=== PATIENT | male | born 1940 | race Caucasian/White ===

== ENCOUNTER → 2016-04-06 | Outpatient (CLI) | payer MEDICARE, OTHER | LOC: OD 14:35 | PROVIDERS: ATTEND Internal Medicine | DX: M54.14 Radiculopathy, thoracic region (principal) | CPT/HCPCS: 72070 ==

== ENCOUNTER → 2016-04-17 | Outpatient (CLI) | payer MEDICARE, OTHER | LOC: RAD 12:23 | PROVIDERS: ATTEND Internal Medicine | DX: M48.54XA Collapsed vertebra, not elsewhere classified, thoracic region, initial encounter for fracture (principal); M54.14 Radiculopathy, thoracic region; M40.294 Other kyphosis, thoracic region | CPT/HCPCS: 72146 ==

== ENCOUNTER 2016-06-20 13:13 | Emergency (ER) | payer MEDICARE, OTHER ==
--- NOTE | 2016-06-20 13:52 | ER Document Report ---
ED Medical Screen (RME) - General Mode of Arrival: Ambulatory Information source: Patient TRAVEL OUTSIDE OF THE [place] IN LAST 30 DAYS: No - HPI Patient complains to provider of: Right Groin Pain Onset: Other - 3 days ago Associated Symptoms: Other - see notes above <REMEDIOS OLIVIER - Last Filed: 06/20/16 14:40> <ARMANDORAMON ANN - Last Filed: 06/20/16 14:56> - General Chief Complaint: Groin Pain Stated Complaint: GROIN PAIN Notes: 75 year old male with history of diabetes, hypertension, hyperlipidemia, and CAD presents to the ED complaining of right side groin pain that started 3 days ago. Patient explains that 3 days ago, he went to use the restroom and collapsed on his knees when trying to get up secondary to the pain. Patient states that his right groin is swollen and feels like there is a "ball" there. Patient denies testicular pain or dysuria. (REMEDIOS OLIVIER) - Related Data Allergies/Adverse Reactions: Penicillins Allergy (Severe, Verified 06/20/16 13:16) rash and hospitalization for 3 days Past Medical History - General Information source: Patient - Past Medical History Cardiac Medical History: Reports: Hx Coronary Artery Disease, Hx Heart Attack, Hx Hypercholesterolemia, Hx Hypertension Pulmonary Medical History: Reports: Hx Asthma, Hx COPD Denies: Hx Bronchitis, Hx Pneumonia Neurological Medical History: Reports: Hx Seizures - suspect few years ago on meds. Denies: Hx Cerebrovascular Accident Endocrine Medical History: Reports: Hx Diabetes Mellitus Type 2, Hx Hypothyroidism Renal/ Medical History: Denies: Hx Peritoneal Dialysis GI Medical History: Denies: Hx Hepatitis, Hx Hiatal Hernia, Hx Ulcer Musculoskeltal Medical History: Denies Hx Arthritis Psychiatric Medical History: Denies: Hx Depression Infectious Medical History: Denies: Hx Hepatitis Past Surgical History: Reports: Hx Cholecystectomy, Hx Orthopedic Surgery - Right Knee arthroscopy, Hx Thyroid Surgery - Thyroidectomy. Denies: Hx Open Heart Surgery, Hx Pacemaker - Immunizations Hx Diphtheria, Pertussis, Tetanus Vaccination: Yes <REMEDIOS OLIVIER - Last Filed: 06/20/16 14:40> Review of Systems - Review of Systems Constitutional: No symptoms reported EENT: No symptoms reported Cardiovascular: No symptoms reported Respiratory: No symptoms reported Gastrointestinal: No symptoms reported Genitourinary: No symptoms reported. denies: Dysuria Male Genitourinary: See HPI, Other - Right sided groin pain and swelling. denies: Testicular pain Musculoskeletal: No symptoms reported Skin: No symptoms reported Hematologic/Lymphatic: No symptoms reported Neurological/Psychological: No symptoms reported <REMEDIOS OLIVIER - Last Filed: 06/20/16 14:40> Physical Exam - General General appearance: Alert In distress: None - Respiratory Respiratory status: No respiratory distress <REMEDIOS OLIVIER - Last Filed: 06/20/16 14:40> <RAMON ROBERTS - Last Filed: 06/20/16 14:56> - Vital signs Vitals: Temp Pulse Resp BP Pulse Ox 98.4 F 71 18 144/74 H 93 06/20/16 13:17 06/20/16 13:17 06/20/16 13:17 06/20/16 13:17 06/20/16 13:17 - Genitourinary Notes: Yeast infection present to the bilateral medial thighs that do not look cellulitic. Bilateral inguinal hernia are present. Right groin is tender to palpate. (REMEDIOS OLIVIER) Course - Laboratory Result Diagrams: 06/20/16 13:48 06/20/16 13:48 - Consults Dr. Quintero Time consulted: 13:32 <REMEDIOS OLIVIER - Last Filed: 06/20/16 14:40> - Laboratory Result Diagrams: 06/20/16 13:48 06/20/16 13:48 <RAMON ROBERTS - Last Filed: 06/20/16 14:56> - Re-evaluation Re-evalutation: 06/20/16 14:56 I personally performed the services described in the documentation, reviewed and edited the documentation which was dictated to the scribe in my presence, and it accurately records my words and actions. (RAMON ROBERTS) - Vital Signs Vital signs: Temp Pulse Resp BP Pulse Ox 98.4 F 71 18 144/74 H 93 06/20/16 13:17 06/20/16 13:17 06/20/16 13:17 06/20/16 13:17 06/20/16 13:17 - Laboratory Laboratory results interpreted by me: 06/20/16 06/20/16 13:48 13:48 WBC 14.9 H RBC 3.92 L Hgb 12.6 L Hct 37.5 L RDW 16.7 H Plt Count 122 L Absolute Neutrophils 11.1 H Absolute Monocytes 1.6 H Potassium 3.5 L Total Protein 6.1 L Albumin 2.6 L - Consults Dr. Quintero Reason for consultation: 06/20/16 13:32 Patient was discussed with Dr. Quintero and he states to CT the patient with po contrast. (REMEDIOS OLIVIER) Scribe Documentation - Scribe Written by Scribe:: Larry Nicole, 06/20/2016 1404 acting as scribe for :: Armando <REMEDIOS OLIVIER - Last Filed: 06/20/16 14:40>
[2016-06-20 14:15] LABS: PROTHROMBIN TIME 14.8 SEC (11.4-15.4)
[2016-06-20 14:16] LABS: ABSOLUTE BASOPHILS # (AUTO) 0.1 10^3/uL (0.0-0.2); ABSOLUTE EOSINOPHILS # (AUTO) 0.2 10^3/uL (0.0-0.6); ABSOLUTE LYMPHOCYTES (AUTO) 1.9 10^3/uL (0.5-4.7); ABSOLUTE MONOCYTES (AUTO) 1.6 10^3/uL (0.1-1.4); ABSOLUTE NEUT (AUTO) 11.1 10^3/uL (1.7-8.2); BASOPHILS % (AUTO) 0.5 % (0-2); EOSINOPHILS % (AUTO) 1.3 % (0-6); HEMATOCRIT 37.5 % (37.9-51.0); HEMOGLOBIN 12.6 g/dL (13.5-17.0); HGB HCT DIFFERENCE 0.3; MEAN CORPUSCULAR HEMOGLOBIN 32.1 pg (27.0-33.4); MEAN CORPUSCULAR HGB CONC 33.5 g/dL (32.0-36.0); MEAN CORPUSCULAR VOLUME 96 fl (80-97); MONOCYTES % (AUTO) 10.6 % (3-13); PARTIAL THROMBOPLASTIN TIME 26.7 SEC (23.5-35.8); RED BLOOD COUNT 3.92 10^6/uL (4.35-5.55); RED CELL DISTRIBUTION WIDTH 16.7 % (11.5-14.0); SEGMENTED NEUTROPHILS % (AUTO) 74.6 % (42-78); WHITE BLOOD COUNT 14.9 10^3/uL (4.0-10.5)
[2016-06-20 14:34] LABS: ALANINE AMINOTRANSFERASE 41 U/L (21-72); ALBUMIN 2.6 g/dL (3.5-5.0); ALKALINE PHOSPHATASE 114 U/L (38-126); ANION GAP 7 (5-19); ASPARTATE AMINO TRANSFERASE 31 U/L (17-59); BILIRUBIN,DIRECT 0.2 mg/dL (0.0-0.4); BILIRUBIN,TOTAL 1.1 mg/dL (0.2-1.3); BLOOD UREA NITROGEN 11 mg/dL (7-20); CALCIUM 8.4 mg/dL (8.4-10.2); CARBON DIOXIDE 26 mmol/L (22-30); CHLORIDE 105 mmol/L (98-107); CREATININE RESULT 0.74 mg/dL (0.52-1.25); GLUCOSE 105 mg/dL (75-110); SODIUM 137.9 mmol/L (137-145); TOTAL PROTEIN 6.1 g/dL (6.3-8.2)
[2016-06-20 14:36] LABS: POTASSIUM 3.5 mmol/L (3.6-5.0)
[2016-06-20 15:00] LABS: APPEARANCE,URINE SLIGHTLY-CLOUDY; BILIRUBIN,URINE NEGATIVE (NEGATIVE); GLUCOSE, URINE NEGATIVE (NEGATIVE); KETONES,URINE NEGATIVE (NEGATIVE); LEUKOCYTE ESTERASE,URINE NEGATIVE (NEGATIVE); NITRITE,URINE NEGATIVE (NEGATIVE); PROTEIN,URINE 30 mg/dL (NEGATIVE); UROBILINOGEN,URINE NEGATIVE mg/dL (<2.0)
--- NOTE | 2016-06-20 17:37 | ER Document Report ---
ED General - General Chief Complaint: Groin Pain Stated Complaint: GROIN PAIN Mode of Arrival: Ambulatory Information source: Patient Notes: 75-year-old male presents with complaints of bilateral groin swelling over the past week. Patient denies any fevers or chills. Last bowel movement 30 minutes ago, patient denies any abdominal pain otherwise Patient does note rash in his groin which has been ongoing now for weeks TRAVEL OUTSIDE OF THE [place] IN LAST 30 DAYS: No - HPI Onset: Other Onset/Duration: Persistent Quality of pain: No pain Severity: Mild Pain Level: Denies Associated symptoms: Other Exacerbated by: Denies Relieved by: Denies Similar symptoms previously: No Recently seen / treated by doctor: No - Related Data Allergies/Adverse Reactions: Penicillins Allergy (Severe, Verified 06/20/16 13:16) rash and hospitalization for 3 days Past Medical History - General Information source: Patient - Social History Smoking Status: Never Smoker Cigarette use (# per day): No Chew tobacco use (# tins/day): No Smoking Education Provided: No Family History: Reviewed & Not Pertinent Patient has suicidal ideation: No Patient has homicidal ideation: No - Past Medical History Cardiac Medical History: Reports: Hx Coronary Artery Disease, Hx Heart Attack, Hx Hypercholesterolemia, Hx Hypertension Pulmonary Medical History: Reports: Hx Asthma, Hx COPD Denies: Hx Bronchitis, Hx Pneumonia Neurological Medical History: Reports: Hx Seizures - suspect few years ago on meds. Denies: Hx Cerebrovascular Accident Endocrine Medical History: Reports: Hx Diabetes Mellitus Type 2, Hx Hypothyroidism Renal/ Medical History: Denies: Hx Peritoneal Dialysis GI Medical History: Denies: Hx Hepatitis, Hx Hiatal Hernia, Hx Ulcer Musculoskeltal Medical History: Denies Hx Arthritis Psychiatric Medical History: Denies: Hx Depression Infectious Medical History: Denies: Hx Hepatitis Past Surgical History: Reports: Hx Cholecystectomy, Hx Orthopedic Surgery - Right Knee arthroscopy, Hx Thyroid Surgery - Thyroidectomy. Denies: Hx Open Heart Surgery, Hx Pacemaker - Immunizations Hx Diphtheria, Pertussis, Tetanus Vaccination: Yes Hx Pneumococcal Vaccination: 12/17/09 Review of Systems - Review of Systems Notes: REVIEW OF SYSTEMS: CONSTITUTIONAL : Denies fever, chills, or sweats. Denies recent illness. EENT: Denies eye, ear, throat, or mouth pain or symptoms. Denies nasal or sinus congestion or discharge. Denies throat, tongue, or mouth swelling or difficulty swallowing. CARDIOVASCULAR: Denies chest pain. Denies palpitations or racing or irregular heart beat. Denies ankle edema. RESPIRATORY: Denies cough, cold, or chest congestion. Denies shortness of breath, difficulty breathing, or wheezing. GASTROINTESTINAL: Admits to bilateral serous swelling GENITOURINARY: Denies difficulty urinating, painful urination, burning, frequency, blood in urine, or discharge. MUSCULOSKELETAL: Denies back or neck pain or stiffness. Denies joint pain or swelling. SKIN: Admits to rash HEMATOLOGIC : Denies easy bruising or bleeding. LYMPHATIC: Denies swollen, enlarged glands. NEUROLOGICAL: Denies confusion or altered mental status. Denies passing out or loss of consciousness. Denies dizziness or lightheadedness. Denies headache. Denies weakness or paralysis or loss of use of either side. Denies problems with gait or speech. Denies sensory loss, numbness, or tingling. Denies seizures. PSYCHIATRIC: Denies anxiety or stress. Denies depression, suicidal ideation, or homicidal ideation. ALL OTHER SYSTEMS REVIEWED AND NEGATIVE. Dictation was performed using [employer] voice recognition software PHYSICAL EXAMINATION: GENERAL: Well-appearing, well-nourished and in no acute distress. HEAD: Atraumatic, normocephalic. EYES: Pupils equal round and reactive to light, extraocular movements intact, sclera anicteric, conjunctiva are normal. ENT: Nares patent, oropharynx clear without exudates. Moist mucous membranes. NECK: Normal range of motion, supple without lymphadenopathy LUNGS: Breath sounds clear to auscultation bilaterally and equal. No wheezes rales or rhonchi. HEART: Regular rate and rhythm without murmurs ABDOMEN: Soft, nontender, nondistended abdomen. No guarding, no rebound. No masses appreciated. Bilateral testicular swelling reducible inguinal hernias midline incision noted Musculoskeletal: Normal range of motion, no pitting or edema. No cyanosis. NEUROLOGICAL: Cranial nerves grossly intact. Normal speech, normal gait. Normal sensory, motor exams PSYCH: Normal mood, normal affect. SKIN: Used infection in the inguinal regions bilaterally and her thighs Physical Exam - Vital signs Vitals: Temp Pulse Resp BP Pulse Ox 98.4 F 71 18 144/74 H 93 06/20/16 13:17 06/20/16 13:17 06/20/16 13:17 06/20/16 13:17 06/20/16 13:17 Course - Re-evaluation Re-evalutation: 06/20/16 19:13 Patient was immediately evaluated by surgical rest, initially a CT had been ordered patient notes he is reproducible inguinal hernias, given that patient abdomen soft nontender nondistended he believes follow-up with clinic is appropriate. Family member agrees with this plan After performing a Medical Screening Examination, I estimate there is LOW risk for ACUTE APPENDICITIS, BOWEL OBSTRUCTION, ACUTE CHOLECYSTITIS, PERFORATED DIVERTICULITIS, INCARCERATED HERNIA, PANCREATITIS, or PERFORATED ULCER, thus I consider the discharge disposition reasonable. Also, there is no evidence or peritonitis, sepsis, or toxicity. The patient and I have discussed the diagnosis and risks, and we agree with discharging home with close follow-up with the understanding that symptoms and presentations can change. We also discussed returning to the Emergency Department immediately if new or worsening symptoms occur. We have discussed the symptoms which are most concerning (e.g., bloody stool, fever, changing or worsening pain, intractable vomiting - standard verbal up date) that necessitate immediate return. - Vital Signs Vital signs: Temp Pulse Resp BP Pulse Ox 98.4 F 79 18 132/69 H 99 06/20/16 18:10 06/20/16 18:10 06/20/16 18:10 06/20/16 18:10 06/20/16 18:10 - Laboratory Result Diagrams: 06/20/16 13:48 06/20/16 13:48 Laboratory results interpreted by me: 06/20/16 06/20/16 06/20/16 13:48 13:48 14:34 WBC 14.9 H RBC 3.92 L Hgb 12.6 L Hct 37.5 L RDW 16.7 H Plt Count 122 L Absolute Neutrophils 11.1 H Absolute Monocytes 1.6 H Potassium 3.5 L Total Protein 6.1 L Albumin 2.6 L Urine Protein 30 H Discharge - Discharge Clinical Impression: inguinal yeast infection Inguinal hernia Qualifiers: Obstruction and gangrene presence: without obstruction or gangrene Laterality: bilateral Recurrence: non-recurrent Qualified Code(s): K40.20 - Bilateral inguinal hernia, without obstruction or gangrene, not specified as recurrent Condition: Stable Disposition: HOME, SELF-CARE Instructions: Umbilical Hernia ([facility]) Additional Instructions: You have been given follow-up with surgery clinic, please see them regarding your hernia. Return immediately if you are unable to have bowel movements or vomiting stool Prescriptions: Nystatin 30 gm TP BID #14 cream..g.
--- NOTE | 2016-06-20 18:13 | CONSULTATION REPORT E ---
Consultation Report NAME: ATTIANA DAVID : 1940 AGE: 75Y DATE: 06/20/2016 TO: GREG MARTÍNEZ M.D. FROM: Doroteo GUERRA, Requesting Physician REASON FOR CONSULTATION: Patient with pains in the right thigh with enlarging right inguinal hernia. SUMMARY: This is a 75-year-old male who noted pains along the right upper inner thigh this morning and noted a larger right inguinal hernia. He denies any pains along the hernia sites. No diarrhea or constipation. No nausea or vomiting. No abdominal pains. His white count is elevated to 14.9. PAST HISTORY: History of laparoscopic cholecystectomy. He has some vertebral cervical pains attributed to arthritis. He also has a history of diabetes and complaining of pain along the left foot. REVIEW OF SYSTEMS: As in HPI. Denies any balance problems nor headaches nor fever. Complaining of pains along the right upper inner thigh with no bulging at the site. PHYSICAL EXAMINATION: GENERAL: Well-developed, well-nourished 75-year-old male, alert and oriented, in no apparent acute distress. HEENT: Neck is supple. No thyromegaly. LUNGS: Clear. HEART: Regular sinus rhythm. ABDOMEN: Soft and nontender. He has bilateral inguinal hernias that are reducible. EXTREMITIES: He has skin erythematous areas along both groins. There is no bulging along the right thigh. Mild tenderness. Both legs are not swollen or edematous. IMPRESSION: 1. Skin groin infection, possible fungal. 2. Incidental finding of bilateral inguinal hernias that are reducible. RECOMMENDATIONS: 1. ER doctor to prescribe skin infection medication. 2. Patient to be followed up in the surgical clinic as needed. DICTATING PHYSICIAN: GREG MARTÍNEZ M.D. [id number] PHY#: [id number] ID: [id number] JOB#: [id number] ACCT: [id number] cc:GREG MARTÍNEZ M.D. >
[2016-06-20 18:17] VITALS: BP 132/69
== END 2016-06-20 18:10 | disposition home or self-care (01) ==
LOC: ER 13:13
DX: K40.20 Bilateral inguinal hernia, without obstruction or gangrene, not specified as recurrent (principal); B37.89 Other sites of candidiasis; R10.30 Lower abdominal pain, unspecified
CPT/HCPCS: 36415; 80053; 81001; 82272; 85025; 85610; 85730; 87086; 99283

== ENCOUNTER → 2016-06-22 | Outpatient (CLI) | payer MEDICARE, OTHER ==
[2016-06-22 17:01] LABS: ABSOLUTE BASOPHILS # (AUTO) 0.1 10^3/uL (0.0-0.2); ABSOLUTE EOSINOPHILS # (AUTO) 0.3 10^3/uL (0.0-0.6); ABSOLUTE LYMPHOCYTES (AUTO) 1.7 10^3/uL (0.5-4.7); ABSOLUTE MONOCYTES (AUTO) 1.3 10^3/uL (0.1-1.4); ABSOLUTE NEUT (AUTO) 9.3 10^3/uL (1.7-8.2); BASOPHILS % (AUTO) 0.8 % (0-2); HEMATOCRIT 37.9 % (37.9-51.0); HEMOGLOBIN 12.8 g/dL (13.5-17.0); HGB HCT DIFFERENCE 0.5; LYMPHOCYTES % (AUTO) 13.3 % (13-45); MEAN CORPUSCULAR HEMOGLOBIN 32.4 pg (27.0-33.4); MEAN CORPUSCULAR HGB CONC 33.8 g/dL (32.0-36.0); MEAN CORPUSCULAR VOLUME 96 fl (80-97); MONOCYTES % (AUTO) 10.3 % (3-13); RED BLOOD COUNT 3.95 10^6/uL (4.35-5.55); RED CELL DISTRIBUTION WIDTH 16.4 % (11.5-14.0); SEGMENTED NEUTROPHILS % (AUTO) 73.6 % (42-78); WHITE BLOOD COUNT 12.6 10^3/uL (4.0-10.5)
[2016-06-22 17:28] LABS: ALANINE AMINOTRANSFERASE 40 U/L (21-72); ALBUMIN 2.7 g/dL (3.5-5.0); ALKALINE PHOSPHATASE 111 U/L (38-126); ANION GAP 11 (5-19); ASPARTATE AMINO TRANSFERASE 33 U/L (17-59); BILIRUBIN,DIRECT 0.4 mg/dL (0.0-0.4); BILIRUBIN,TOTAL 1.1 mg/dL (0.2-1.3); BLOOD UREA NITROGEN 10 mg/dL (7-20); CALCIUM 8.5 mg/dL (8.4-10.2); CARBON DIOXIDE 24 mmol/L (22-30); CHLORIDE 104 mmol/L (98-107); CREATININE RESULT 0.66 mg/dL (0.52-1.25); GLUCOSE 90 mg/dL (75-110); MAGNESIUM 1.7 mg/dL (1.6-2.3); POTASSIUM 3.1 mmol/L (3.6-5.0); SODIUM 138.5 mmol/L (137-145); TOTAL PROTEIN 6.5 g/dL (6.3-8.2)
== END ==
LOC: OD 15:42
PROVIDERS: ATTEND Internal Medicine
DX: E87.0 Hyperosmolality and hypernatremia (principal); E03.9 Hypothyroidism, unspecified; E11.9 Type 2 diabetes mellitus without complications
CPT/HCPCS: 36415; 80053; 83735; 84443; 85025

== ENCOUNTER 2016-07-12 05:15 | Day surgery (SDC) | payer MEDICARE, OTHER ==
[2016-07-05 11:54] LABS: ABSOLUTE BASOPHILS # (AUTO) 0.1 10^3/uL (0.0-0.2); ABSOLUTE EOSINOPHILS # (AUTO) 0.8 10^3/uL (0.0-0.6); ABSOLUTE LYMPHOCYTES (AUTO) 1.9 10^3/uL (0.5-4.7); ABSOLUTE MONOCYTES (AUTO) 0.9 10^3/uL (0.1-1.4); EOSINOPHILS % (AUTO) 9.1 % (0-6); HEMATOCRIT 38.1 % (37.9-51.0); HEMOGLOBIN 13.1 g/dL (13.5-17.0); HGB HCT DIFFERENCE 1.2; LYMPHOCYTES % (AUTO) 21.6 % (13-45); MEAN CORPUSCULAR HGB CONC 34.4 g/dL (32.0-36.0); MEAN CORPUSCULAR VOLUME 96 fl (80-97); MONOCYTES % (AUTO) 10.5 % (3-13); RED BLOOD COUNT 3.97 10^6/uL (4.35-5.55); RED CELL DISTRIBUTION WIDTH 15.5 % (11.5-14.0); SEGMENTED NEUTROPHILS % (AUTO) 57.8 % (42-78); WHITE BLOOD COUNT 8.6 10^3/uL (4.0-10.5)
[2016-07-05 12:05] LABS: APPEARANCE,URINE CLEAR; BILIRUBIN,URINE NEGATIVE (NEGATIVE); GLUCOSE, URINE NEGATIVE (NEGATIVE); KETONES,URINE NEGATIVE (NEGATIVE); LEUKOCYTE ESTERASE,URINE NEGATIVE (NEGATIVE); NITRITE,URINE NEGATIVE (NEGATIVE); PROTEIN,URINE NEGATIVE (NEGATIVE); URINE SPECIFIC GRAVITY 1.013
[2016-07-05 12:19] LABS: ANION GAP 9 (5-19); BLOOD UREA NITROGEN 7 mg/dL (7-20); CALCIUM 8.4 mg/dL (8.4-10.2); CARBON DIOXIDE 27 mmol/L (22-30); CHLORIDE 106 mmol/L (98-107); CREATININE RESULT 0.57 mg/dL (0.52-1.25); GLUCOSE 104 mg/dL (75-110); POTASSIUM 3.1 mmol/L (3.6-5.0); SODIUM 141.5 mmol/L (137-145)
--- NOTE | 2016-07-05 20:04 | EKG REPORT ---
SEVERITY:- NORMAL ECG - SINUS RHYTHM : Confirmed by: Lorene Chong MD 05-Jul-2016 20:03:27
[~2016-07-12 05:15] MED LIST: CLINDAMYCIN 600 MG/D5W RTU 600 MG/50 ML RTUPB IV PRN; LACTATED RINGERS 1000 ML IV PRN; LIDOCAINE 0.5% INJ-PF (5 MG/ML) 50 ML SDV SUBCUT PRN
[2016-07-12] MEDS ORDERED: MIDAZOLAM 2 MG/2 ML INJ ONE (06:55)
[2016-07-12] MEDS ORDERED: PROPOFOL INJ 200 MG/20 ML VIAL IV ONE (06:55)
[2016-07-12] MEDS ORDERED: FENTANYL CITRATE INJ/PF 100 MCG/2 ML AMPUL ONE (06:55)
[2016-07-12] MEDS ORDERED: BUPIVACAINE HCL 0.25 % INJ/PF (2.5 MG/1 ML) 30 ML VIAL ONE (07:24)
[2016-07-12] MEDS ORDERED: FENTANYL CITRATE INJ/PF 100 MCG/2 ML AMPUL IV PRN ×3 (07:33)
[2016-07-12] MEDS ORDERED: DIPHENHYDRAMINE HCL 50 MG/ML VIAL IV PRN (07:33)
[2016-07-12] MEDS ORDERED: ONDANSETRON HCL INJ/PF 4 MG/2 ML SDV IV PRN ×2 (07:33→08:37)
[2016-07-12] MEDS ORDERED: MEPERIDINE HCL/PF INJ 25 MG/1 ML DISP.SYRIN IV PRN (07:33)
[2016-07-12] MEDS ORDERED: PROMETHAZINE HCL INJ 25 MG/1 ML VIAL IV PRN ×2 (07:33)
[2016-07-12] MEDS ORDERED: MORPHINE SULFATE 10 MG/ML INJ IV PRN (07:33)
--- NOTE | 2016-07-12 07:45 | Operative Report ---
Operative Report DATE OF SURGERY: 07/12/16 PREOPERATIVE DIAGNOSIS: Left fourth toe deformity OPERATION: Left fourth toe MTP disarticulation SURGEON: ISABELLA ONTIVEROS ANESTHESIA: LMAC TISSUE REMOVED OR ALTERED: Toe to pathology ESTIMATED BLOOD LOSS: minimal PROCEDURE: With the patient supine operative table left lower extremity is prepped and draped in sterile fashion. The skin and soft tissue about the base of the left fourth toe is insufflated with an quarter percent Marcaine. Subsequently a tennis racquet type incision is made about the base of the toe and extending proximally along the metatarsal dorsally. Sharp dissection is carried incision down to the MTP capsule. This was dissected circumferentially delivering the toe from the field. The wound is irrigated. Hemostasis obtained with electrocautery. The wound is then reapproximated using interrupted 2-0 nylon. A sterile compressive dressing was applied and the patient's returned to the PACU in satisfactory condition.
[2016-07-12] MEDS ORDERED: OXYCODONE HCL IR 5 MG TABLET PO PRN (08:37)
[2016-07-12 10:12] VITALS: BP 126/75
== END 2016-07-12 10:25 | disposition home or self-care (01) ==
LOC: OROUT 05:15
PROVIDERS: ATTEND Orthopaedic Surgery
PROC: 0Y6W0Z0 Detachment at Left 4th Toe, Complete, Open Approach (ICD-10-PCS; principal; 2016-07-12 07:30)
DX: M20.42 Other hammer toe(s) (acquired), left foot (principal); M19.90 Unspecified osteoarthritis, unspecified site; E11.9 Type 2 diabetes mellitus without complications; E78.00 Pure hypercholesterolemia, unspecified; I10 Essential (primary) hypertension; E03.9 Hypothyroidism, unspecified; J44.9 Chronic obstructive pulmonary disease, unspecified; Z79.899 Other long term (current) drug therapy; Z88.0 Allergy status to penicillin; Z79.51 Long term (current) use of inhaled steroids; Z87.891 Personal history of nicotine dependence
CPT/HCPCS: 93005; 36415 ×2; 82962; 84132; 85025; 80048; 81001; 83036; 88304 ×2; 71020; 93010; 28820; J2250; J3010; J2704; 1470

== ENCOUNTER → 2016-09-20 | Outpatient (CLI) | payer MEDICARE, OTHER ==
[2016-09-21 09:07] LABS: IMMUNOGLOBULIN E 912 IU/mL (0-100)
[2016-09-22 14:40] LABS: FOL RBC HEMATOCRIT 36.8 % (37.5-51.0); FOLATE HEMOLYSATE 405.4 ng/mL (Not Estab.); FOLATE RBC 3 1102 ng/mL (>498)
[2016-09-22 15:11] LABS: FOLATE SERUM 10.4 ng/mL (>3.0)
[2016-09-23 06:39] LABS: M001-IGE PENICILLIUM CHRYSOGEN 0.27 kU/L (Class 0/I); M002-IGE CLADOSPORIUM HERBARUM 0.23 kU/L (Class 0/I); M003-IGE ASPERGILLUS FUMIGATUS 0.49 kU/L (Class I); M004-IGE MUCOR RACEMOSUS 0.55 kU/L (Class I); M005-IGE CANDIDA ALBICANS <0.10 kU/L (Class 0); M008-IGE SETOMELANOMMA ROSTRAT 0.18 kU/L (Class 0/I); M009-IGE FUSARIUM PROLIFERATUM 0.15 kU/L (Class 0/I); M012-IGE AUREOBASIDI PULLULANS 0.23 kU/L (Class 0/I); M014-IGE EPICOCCUM PURPURASCEN <0.10 kU/L (Class 0)
[2016-09-23 11:35] LABS: M010-IGE STEMPHYLIUM HERBARUM <0.10 kU/L (Class 0)
== END ==
LOC: OD 11:39
PROVIDERS: ATTEND Internal Medicine Pulmonary Disease
DX: G47.61 Periodic limb movement disorder (principal); J45.909 Unspecified asthma, uncomplicated; Z86.2 Personal history of diseases of the blood and blood-forming organs and certain disorders involving the immune mechanism
CPT/HCPCS: 36415; 82306; 82607; 82728; 82746; 82747; 82785; 84132; 85014; 86003

== ENCOUNTER 2016-11-24 14:46 | Observation (INO) | payer MEDICARE, OTHER ==
--- NOTE | 2016-11-24 15:34 | ER Document Report ---
ED Medical Screen (RME) - General Chief Complaint: Chest Pain > 30 Stated Complaint: CHEST PAIN Time Seen by Provider: 11/24/16 15:31 Mode of Arrival: Wheelchair Information source: Patient TRAVEL OUTSIDE OF THE [place] IN LAST 30 DAYS: No - HPI Patient complains to provider of: CP Onset: Other - Pt. with c/o SSCP for the past 3 days -- has h/o DM and HTN -- took his ASA already this am - Related Data Allergies/Adverse Reactions: Penicillins Allergy (Severe, Verified 11/24/16 14:54) rash and hospitalization for 3 days Past Medical History - Past Medical History Cardiac Medical History: Reports: Hx Coronary Artery Disease, Hx Heart Attack, Hx Hypercholesterolemia, Hx Hypertension Pulmonary Medical History: Reports: Hx Asthma, Hx COPD Denies: Hx Bronchitis, Hx Pneumonia Neurological Medical History: Reports: Hx Seizures - suspect few years ago on meds. Denies: Hx Cerebrovascular Accident Endocrine Medical History: Reports: Hx Diabetes Mellitus Type 2, Hx Hypothyroidism Renal/ Medical History: Denies: Hx Peritoneal Dialysis GI Medical History: Denies: Hx Hepatitis, Hx Hiatal Hernia, Hx Ulcer Musculoskeltal Medical History: Denies Hx Arthritis Psychiatric Medical History: Denies: Hx Depression Infectious Medical History: Denies: Hx Hepatitis Past Surgical History: Reports: Hx Cholecystectomy, Hx Orthopedic Surgery - Right Knee arthroscopy, Hx Thyroid Surgery - Thyroidectomy. Denies: Hx Open Heart Surgery, Hx Pacemaker - Immunizations Hx Diphtheria, Pertussis, Tetanus Vaccination: Yes Physical Exam - Vital signs Vitals: Temp Pulse Resp BP Pulse Ox 97.9 F 73 24 H 175/85 H 94 11/24/16 14:54 11/24/16 14:54 11/24/16 14:54 11/24/16 14:54 11/24/16 14:54 Course - Vital Signs Vital signs: Temp Pulse Resp BP Pulse Ox 97.9 F 73 24 H 175/85 H 94 11/24/16 14:54 11/24/16 14:54 11/24/16 14:54 11/24/16 14:54 11/24/16 14:54
--- NOTE | 2016-11-24 16:26 | RADIOLOGY REPORT (SQ) ---
EXAM DESCRIPTION: CHEST PA/LAT COMPLETED DATE/TIME: 11/24/2016 4:06 pm REASON FOR STUDY: CP COMPARISON: 07/05/2016. EXAM PARAMETERS: NUMBER OF VIEWS: two views TECHNIQUE: Digital Frontal and Lateral radiographic views of the chest acquired. RADIATION DOSE: NA LIMITATIONS: none FINDINGS: LUNGS AND PLEURA: Chronic fibrosis and scarring. No focal infiltrates. No pleural effusi on or pneumothorax. MEDIASTINUM AND HILAR STRUCTURES: No masses or contour abnormalities. HEART AND VASCULAR STRUCTURES: Heart normal size. No evidence for failure. BONES: No acute findings. HARDWARE: None in the chest. OTHER: No other significant finding. IMPRESSION: STABLE APPEARANCE WITH CHRONIC SCARRING AND FIBROSIS. NO DEFINITE ACUTE FINDINGS. TECHNICAL DOCUMENTATION: JOB ID: [id number] [employer]- All Rights Reserved
[2016-11-24 16:36] LABS: ABSOLUTE BASOPHILS # (AUTO) 0.1 10^3/uL (0.0-0.2); ABSOLUTE EOSINOPHILS # (AUTO) 0.3 10^3/uL (0.0-0.6); ABSOLUTE LYMPHOCYTES (AUTO) 1.4 10^3/uL (0.5-4.7); ABSOLUTE MONOCYTES (AUTO) 0.7 10^3/uL (0.1-1.4); ABSOLUTE NEUT (AUTO) 4.8 10^3/uL (1.7-8.2); BASOPHILS % (AUTO) 0.9 % (0-2); EOSINOPHILS % (AUTO) 4.7 % (0-6); HEMATOCRIT 36.1 % (37.9-51.0); HEMOGLOBIN 11.9 g/dL (13.5-17.0); HGB HCT DIFFERENCE -0.4; LYMPHOCYTES % (AUTO) 19.2 % (13-45); MEAN CORPUSCULAR VOLUME 100 fl (80-97); MONOCYTES % (AUTO) 8.9 % (3-13); RED BLOOD COUNT 3.61 10^6/uL (4.35-5.55); RED CELL DISTRIBUTION WIDTH 15.3 % (11.5-14.0); SEGMENTED NEUTROPHILS % (AUTO) 66.3 % (42-78); WHITE BLOOD COUNT 7.3 10^3/uL (4.0-10.5)
[2016-11-24 17:00] LABS: ALANINE AMINOTRANSFERASE 37 U/L (21-72); ALBUMIN 2.6 g/dL (3.5-5.0); ALKALINE PHOSPHATASE 122 U/L (38-126); ANION GAP 9 (5-19); ASPARTATE AMINO TRANSFERASE 25 U/L (17-59); BILIRUBIN,DIRECT 0.4 mg/dL (0.0-0.4); BILIRUBIN,TOTAL 1.1 mg/dL (0.2-1.3); BLOOD UREA NITROGEN 9 mg/dL (7-20); CALCIUM 7.9 mg/dL (8.4-10.2); CARBON DIOXIDE 24 mmol/L (22-30); CHLORIDE 106 mmol/L (98-107); CREATINE KINASE 20 U/L (55-170); GLUCOSE 113 mg/dL (75-110); POTASSIUM 3.1 mmol/L (3.6-5.0); SODIUM 139.4 mmol/L (137-145); TOTAL PROTEIN 6.8 g/dL (6.3-8.2)
[2016-11-24 17:12] LABS: CREATINE KINASE MB 0.83 ng/mL (<4.55)
[2016-11-24 17:14] LABS: TROPONIN I < 0.012 ng/mL
--- NOTE | 2016-11-24 18:12 | ER Document Report ---
ED Cardiac - General Chief Complaint: Chest Pain > 30 Stated Complaint: CHEST PAIN Time Seen by Provider: 11/24/16 15:31 Mode of Arrival: Wheelchair Notes: The patient is a 76-year-old male, past medical history hypertension, diabetes, presents with 3 days of intermittent substernal chest pain rating to his right anterior chest. He is unsure if it is related to exertion or food. His last stress test was 2 years ago and he has never had a cath. He took 162 mg ASA earlier today and he is chest pain free at this time. He denies shortness of breath, leg swelling, back pain, numbness, tingling, nausea, vomiting, diaphoresis, abdominal pain or urinary symptoms. TRAVEL OUTSIDE OF THE [place] IN LAST 30 DAYS: No - Related Data Allergies/Adverse Reactions: Penicillins Allergy (Severe, Verified 11/24/16 14:54) rash and hospitalization for 3 days Past Medical History - General Information source: Patient - Social History Smoking Status: Former Smoker Family History: Reviewed & Not Pertinent Patient has suicidal ideation: No Patient has homicidal ideation: No - Past Medical History Cardiac Medical History: Reports: Hx Coronary Artery Disease, Hx Heart Attack, Hx Hypercholesterolemia, Hx Hypertension Pulmonary Medical History: Reports: Hx Asthma, Hx COPD Denies: Hx Bronchitis, Hx Pneumonia Neurological Medical History: Reports: Hx Seizures - suspect few years ago on meds. Denies: Hx Cerebrovascular Accident Endocrine Medical History: Reports: Hx Diabetes Mellitus Type 2, Hx Hypothyroidism Renal/ Medical History: Denies: Hx Peritoneal Dialysis GI Medical History: Denies: Hx Hepatitis, Hx Hiatal Hernia, Hx Ulcer Musculoskeltal Medical History: Denies Hx Arthritis Psychiatric Medical History: Denies: Hx Depression Infectious Medical History: Denies: Hx Hepatitis Past Surgical History: Reports: Hx Cholecystectomy, Hx Orthopedic Surgery - Right Knee arthroscopy, Hx Thyroid Surgery - Thyroidectomy. Denies: Hx Open Heart Surgery, Hx Pacemaker - Immunizations Hx Diphtheria, Pertussis, Tetanus Vaccination: Yes Hx Pneumococcal Vaccination: 12/17/09 Review of Systems - Review of Systems Notes: REVIEW OF SYSTEMS: CONSTITUTIONAL: -fevers, -chills EENT: -eye pain, -difficulty swallowing, -nasal congestion CARDIOVASCULAR: +chest pain, -syncope. RESPIRATORY: -cough, -SOB GASTROINTESTINAL: -abdominal pain, - nausea, -vomiting, -diarrhea GENITOURINARY: -dysuria, -hematuria MUSCULOSKELETAL: -back pain, -neck pain SKIN: -rash or skin lesions. HEMATOLOGIC: -easy bruising or bleeding. LYMPHATIC: -swollen, enlarged glands. NEUROLOGICAL: -altered mental status or loss of consciousness, -headache, - neurologic symptoms PSYCHIATRIC: -anxiety, -depression. ALL OTHER SYSTEMS REVIEWED AND NEGATIVE. Physical Exam - Vital signs Vitals: Temp Pulse Resp BP Pulse Ox 97.9 F 73 24 H 175/85 H 94 11/24/16 14:54 11/24/16 14:54 11/24/16 14:54 11/24/16 14:54 11/24/16 14:54 - Notes Notes: PHYSICAL EXAMINATION: GENERAL: Well-appearing, well-nourished and in no acute distress. HEAD: Atraumatic, normocephalic. EYES: Pupils equal round and reactive to light, extraocular movements intact, sclera anicteric, conjunctiva are normal. ENT: nares patent, oropharynx clear without exudates. Moist mucous membranes. NECK: Normal range of motion, supple without lymphadenopathy LUNGS: Breath sounds clear to auscultation bilaterally and equal. No wheezes rales or rhonchi. HEART: Regular rate and rhythm without murmurs ABDOMEN: Soft, nontender, normoactive bowel sounds. No guarding, no rebound. No masses appreciated. EXTREMITIES: Normal range of motion, no pitting or edema. No cyanosis. NEUROLOGICAL: Cranial nerves grossly intact. Normal speech, normal gait. Normal sensory and motor exams. PSYCH: Normal mood, normal affect. SKIN: Warm, Dry, normal turgor, no rashes or lesions noted. Course - Re-evaluation Re-evalutation: Pt chest pain free. His HEART score is 6. No SOB to suggest PE or back pain to suggest aortic dissection. 11/24/16 18:[address] Banks (Hospitalist) and he has accepted patient to Tele Obs for further evaluation and treatment of his chest pain. - Vital Signs Vital signs: Temp Pulse Resp BP Pulse Ox 97.9 F 73 24 H 130/65 H 96 11/24/16 14:54 11/24/16 14:54 11/24/16 14:54 11/24/16 17:00 11/24/16 17:00 - Laboratory Result Diagrams: 11/24/16 16:20 11/24/16 16:20 Laboratory results interpreted by me: 11/24/16 11/24/16 16:20 16:20 RBC 3.61 L Hgb 11.9 L Hct 36.1 L MCV 100 H RDW 15.3 H Plt Count 138 L Potassium 3.1 L Glucose 113 H Calcium 7.9 L Creatine Kinase 20 L Albumin 2.6 L - Diagnostic Test Radiology reviewed: Image reviewed, Reports reviewed Radiology results interpreted by me: CXR: NAD - EKG Interpretation by Me EKG shows normal: Sinus rhythm, [place], Intervals, QRS Complexes, ST-T Waves When compared to previous EKG there are: No significant change Discharge - Discharge Clinical Impression: Chest pain Qualifiers: Chest pain type: unspecified Qualified Code(s): R07.9 - Chest pain, unspecified Condition: Stable Disposition: ADMITTED OBSERVATION Admitting Provider: Hospitalist - Jocelyn Unit Admitted: Telemetry
[2016-11-24] MEDS ORDERED: ACETAMINOPHEN 325 MG TABLET PO PRN (18:42)
[2016-11-24] MEDS ORDERED: DEXTROSE 50%-WATER 25 GM/50 ML DISP.SYRIN IV PRN ×4 (18:42→18:48)
[2016-11-24] MEDS ORDERED: ONDANSETRON 4 MG TAB.RAPDIS PO PRN (18:42)
[2016-11-24] MEDS ORDERED: GLUCAGON,HUMAN RECOMB 1 MG INJ SUBCUT PRN (18:42)
[2016-11-24] MEDS ORDERED: DEXTROSE 40% GEL 15 GM TUBE PO PRN ×4 (18:42→18:48)
[2016-11-24] MEDS ORDERED: INSULIN LISPRO 100 UNIT/ML 3 ML VIAL SUBCUT PRN (18:48)
[2016-11-24] MEDS ORDERED: GLUCAGON,HUMAN RECOMB 1 MG INJ IM PRN (18:48)
[2016-11-24] MEDS ORDERED: ASPIRIN 81 MG TABLET, CHEWABLE PO PRN (18:52)
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
--- NOTE | 2016-11-24 19:27 | EKG REPORT ---
SEVERITY:- ABNORMAL ECG - SINUS RHYTHM PROBABLE INFERIOR INFARCT, AGE INDETERMINATE CONSIDER ANTERIOR INFARCT : Confirmed by: Gerson Hyde MD 24-Nov-2016 19:27:04
[2016-11-24] MEDS ORDERED: POTASSIUM CHLORIDE 10 MEQ TABLET.SA PO ONE (20:00)
[2016-11-24] MEDS ORDERED: MONTELUKAST SODIUM 10 MG TABLET PO SCH (22:00)
[2016-11-24] MEDS: ALBUTEROL SULFATE HFA (90 MCG/PUFF) 8 GM MDI (1 MDI/ER DISP) IH PRN ×2 (22:40→23:01)
[2016-11-24] MEDS ORDERED: GABAPENTIN 400 MG CAPSULE PO ONE (22:45)
[2016-11-24] MEDS ORDERED: FLUTICASONE NASAL SPRAY 50 MCG/SPRY 120 SPRAY/16 GM ONE (23:35)
[2016-11-24] MEDS: FLUTICASONE NASAL SPRAY 50 MCG/SPRY 120 SPRAY/16 GM NASL SCH (23:39)
[2016-11-25] MEDS ORDERED: LANSOPRAZOLE 15 MG TAB.RAP.DR PO SCH (06:00)
[2016-11-25] MEDS: GABAPENTIN 400 MG CAPSULE PO SCH ×2 (06:07→13:48)
[2016-11-25 06:09] LABS: ANION GAP 8 (5-19); BLOOD UREA NITROGEN 8 mg/dL (7-20); CALCIUM 8.7 mg/dL (8.4-10.2); CARBON DIOXIDE 25 mmol/L (22-30); CHLORIDE 108 mmol/L (98-107); CREATININE RESULT 0.59 mg/dL (0.52-1.25); GLUCOSE 92 mg/dL (75-110); MAGNESIUM 1.7 mg/dL (1.6-2.3); POTASSIUM 3.8 mmol/L (3.6-5.0); SODIUM 140.7 mmol/L (137-145)
[2016-11-25] MEDS ORDERED: ALBUTEROL SULFATE HFA (90 MCG/PUFF) 200 PUFF/8.5 GM MDI IH PRN (08:30)
[2016-11-25] MEDS: FLUTICASONE NASAL SPRAY 50 MCG/SPRY 120 SPRAY/16 GM NASL SCH (09:17)
[2016-11-25] MEDS ORDERED: PREDNISONE 20 MG TABLET PO SCH (10:00)
[2016-11-25] MEDS ORDERED: (PENDING PHARMACY ID) (Acetylcysteine [Nac 600 Mg Capsule] 600 MG) PO SCH (10:00)
[2016-11-25] MEDS ORDERED: (PENDING PHARMACY ID) (Metformin Hcl [Metformin Hcl Er] 500 MG) PO SCH (10:00)
[2016-11-25] MEDS ORDERED: MELOXICAM 15 MG TABLET PO SCH (10:00)
[2016-11-25] MEDS ORDERED: FUROSEMIDE 40 MG TABLET PO SCH (10:00)
[2016-11-25] MEDS ORDERED: POTASSIUM CHLORIDE 10 MEQ TABLET.SA PO SCH (10:00)
[2016-11-25] MEDS ORDERED: LEVOTHYROXINE SODIUM 0.15 MG TABLET PO SCH (10:00)
[2016-11-25] MEDS ORDERED: (PENDING PHARMACY ID) (Rosuvastatin Calcium [Crestor] 40 MG) PO SCH (10:00)
[2016-11-25] MEDS ORDERED: AMLODIPINE BESYLATE 5 MG TABLET PO SCH (10:00)
[2016-11-25] MEDS ORDERED: AMITRIPTYLINE HCL 50 MG TABLET PO SCH (10:00)
[2016-11-25] MEDS ORDERED: NYSTATIN CREAM 15 GM TP SCH (10:00)
[2016-11-25] MEDS ORDERED: LORATADINE 10 MG TABLET PO SCH (10:00)
[2016-11-25] MEDS ORDERED: AMINOPHYLLINE INJ/PF 250 MG/10 ML SDV IV ONE (11:22)
[2016-11-25] MEDS ORDERED: REGADENOSON INJ 0.4 MG/5 ML DISP.SYRIN IV ONE (11:22)
--- NOTE | 2016-11-25 13:45 | DRAGON STRESS TEST REPORT ---
INTRAVENOUS LEXISCAN CARDIOLITE STRESS TEST USING SINGLE PHOTON EMMISION COMPUTERIZED TOMOGRAPHIC. DATE OF PROCEDURE: November 25, 2016 INDICATION : Chest pain CARDIAC RISK FACTORS: Diabetes, hypertension, dyslipidemia RESTING EKG: Sinus rhythm, abnormal Q waves inferior leads suggestive of prior inferior myocardial infarction, no baseline ST segment changes noted STRESS EKG: No significant changes noted with LexiScan bolus REASON FOR TERMINATION: Protocol. PROCEDURE REPORT: Baseline heart rate 70 beats per minute with blood pressure of 146/98. Patient had no significant complaints. Heart rate at 2 minutes post bolus 82 with a blood pressure of 137/72 3 minutes post bolus heart rate 78 with blood pressure of 134/72. No significant EKG changes were noted. Patient had no significant complaints during the procedure or postprocedure. Patient injected with Aminophyllin 75 mg at 3 minutes or later after Lexiscan bolus. CONCLUSIONS: Normal EKG and hemodynamic response to IV LexiScan. NUCLEAR DATA: At rest the patient was given 10.04 millicuries of technetium 99 sestamibi injected intravenously. As per protocol rest gated SPECT images were obtained. Subsequently the patient was given intravenous LexiScan at a dose of 0.4 mg in 5 mL intravenously, followed by flush with normal saline. Subsequently the stress dose of 32.1 millicuries of technetium 99 sestamibi was injected intravenously. As per protocol stress gated images were obtained. NUCLEAR INTERPRETATION: Both raw and processed data were used for interpretation. Visual, qualitative, computer-generated quantitative data was used. There was good myocardial uptake of technetium compound. Motion artifact and soft tissue attenuations were noted. Increased visceral uptake was noted. No definitive areas of transient perfusion defect noted except for minimal area of surrounding ischemia around a moderate to severe fixed defect as described below. Moderate to severe fixed defect noted involving the basal and mid inferior wall. EKG gated imaging showed LV EF at 62 %, rest and stress gated EF similar visually, basal inferior wall hypokinesia noted. T. I D. ratio was 1.03. Lung heart ratio noted to be within normal limits 0.44. No significant extracardiac and abnormal radiotracer activities were noted. RV free wall uptake was noted to be WNL. IMPRESSION: Also refer to comments under nuclear interpretation. Also test results needs to be interpreted in the context of pretest probability. 1. There is no definitive scintigraphic evidence of LexiScan induced myocardial ischemia, except for minimal area of surrounding ischemia around a moderate to severe fixed defect as described below. 2. There is scintigraphic evidence of myocardial infarction/scar involving the basal and mid inferior wall. 3. EKG gated imaging shows left ventricular ejection fraction of approximately 62 % with mild hypokinesia of the basal inferior wall. 4. Clinical correlation requested as occasionally worse or balanced ischemia could be missed. In approximately 10% of the cases Lexiscan may not cause adequate vasodilatory stress. RECOMMENDATIONS: Aggressive risk factor modification, medical therapy. If significant symptoms consider heart catheterization. Clinical correlation with echocardiogram derived ejection fraction. Inability to exercise by itself can lead to increased cardiovascular event risks. Consider cardiology consultation and or follow-up if clinically indicated. I AM AVAILABLE FOR CARDIOLOGY CONSULTATION AND FOLLOWUP IF REQUESTED BY PMSelina Phelps M.D., MYESHA End Worker electronic device repairer, Board certified in cardiovascular diseases, Nuclear cardiology, Echocardiography Cardiac CT and cardiac MRI Ph. [phone] KARLEE
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
[2016-11-25 16:19] VITALS: BP 147/69
[2016-11-26] MEDS ORDERED: ASPIRIN 81 MG TABLET, ENT COATED PO SCH (10:00)
[2016-11-26] MEDS ORDERED: ASPIRIN 81 MG TABLET, CHEWABLE PO SCH (10:00)
== END 2016-11-25 16:48 | disposition home or self-care (01) ==
LOC: ER 14:46 → UNDOADMOB 18:24 → EH 18:24 → 5 20:35
DX: R07.9 Chest pain, unspecified (principal); E87.6 Hypokalemia; E11.9 Type 2 diabetes mellitus without complications; E03.9 Hypothyroidism, unspecified; Z79.84 Long term (current) use of oral hypoglycemic drugs; I25.10 Atherosclerotic heart disease of native coronary artery without angina pectoris; I25.2 Old myocardial infarction; I10 Essential (primary) hypertension; E78.5 Hyperlipidemia, unspecified; Z87.891 Personal history of nicotine dependence
CPT/HCPCS: 93005; 99285; 36415 ×2; 82553; 82962 ×2; 82550 ×2; 83735; 84443; 85025; 80048; 80053; 84484 ×2; 83036; 93017; 71020; 78452; 93010; G0378 ×3; A9500; A9270 ×13; J2785; J3490 ×3; J0280; Q9969; J7512

== ENCOUNTER → 2017-06-04 | Outpatient (CLI) | payer MEDICARE, OTHER ==
[2017-06-04 12:14] LABS: ABSOLUTE EOSINOPHILS # (AUTO) 0.5 10^3/uL (0.0-0.6); ABSOLUTE LYMPHOCYTES (AUTO) 1.8 10^3/uL (0.5-4.7); ABSOLUTE MONOCYTES (AUTO) 0.6 10^3/uL (0.1-1.4); ABSOLUTE NEUT (AUTO) 3.7 10^3/uL (1.7-8.2); BASOPHILS % (AUTO) 0.2 % (0-2); EOSINOPHILS % (AUTO) 6.9 % (0-6); LYMPHOCYTES % (AUTO) 26.9 % (13-45); MEAN CORPUSCULAR HEMOGLOBIN 33.1 pg (27.0-33.4); MEAN CORPUSCULAR HGB CONC 34.2 g/dL (32.0-36.0); MEAN CORPUSCULAR VOLUME 97 fl (80-97); MONOCYTES % (AUTO) 9.5 % (3-13); PLATELET COUNT 163 10^3/uL (150-450); RED BLOOD COUNT 3.93 10^6/uL (4.35-5.55); RED CELL DISTRIBUTION WIDTH 16.2 % (11.5-14.0); SEGMENTED NEUTROPHILS % (AUTO) 56.5 % (42-78); TOTAL CELLS COUNTED % (AUTO) 100 %; WHITE BLOOD COUNT 6.5 10^3/uL (4.0-10.5)
[2017-06-04 12:28] LABS: ALANINE AMINOTRANSFERASE 24 U/L (21-72); ALBUMIN 2.7 g/dL (3.5-5.0); ALKALINE PHOSPHATASE 126 U/L (38-126); ANION GAP 9 (5-19); ASPARTATE AMINO TRANSFERASE 40 U/L (17-59); BILIRUBIN,DIRECT 0.5 mg/dL (0.0-0.4); BILIRUBIN,TOTAL 1.1 mg/dL (0.2-1.3); BLOOD UREA NITROGEN 8 mg/dL (7-20); CALCIUM 9.1 mg/dL (8.4-10.2); CARBON DIOXIDE 23 mmol/L (22-30); CHLORIDE 111 mmol/L (98-107); CHOLESTEROL 126.54 mg/dL (0-200); GLUCOSE 89 mg/dL (75-110); POTASSIUM 3.5 mmol/L (3.6-5.0); SODIUM 142.5 mmol/L (137-145); TOTAL PROTEIN 8.4 g/dL (6.3-8.2); TRIGLYCERIDES 62 mg/dL (<150)
[2017-06-04 12:39] LABS: DIRECT LDL 69 mg/dL (<100)
== END ==
LOC: OD 10:59
PROVIDERS: ATTEND Internal Medicine
DX: E11.9 Type 2 diabetes mellitus without complications (principal); I10 Essential (primary) hypertension; E78.5 Hyperlipidemia, unspecified; R53.83 Other fatigue; R35.1 Nocturia; E03.9 Hypothyroidism, unspecified
CPT/HCPCS: 36415; 80053; 80061; 83036; 84153; 84443; 85025

== ENCOUNTER 2017-12-03 13:55 | Emergency (ER) | payer MEDICARE, OTHER ==
--- NOTE | 2017-12-03 15:26 | ER Document Report ---
ED Medical Screen (RME) - General Chief Complaint: Leg Swelling Stated Complaint: LEG AND FEET SWELLING Time Seen by Provider: 12/03/17 15:18 Notes: 77 years old pleasant male presents today with progressive increasing size of the abdomen and lower leg swelling difficulty in breathing on exertion. He is nonalcoholic and non-smoker. His past cholecystectomy failed due to accidental nicking off common bile duct. Subsequently had surgery with an open abdomen. Has multiple scar on the abdomen. On examination-lung lower lung rales Abdomen distended-surgical scar prominent-multiple ventral hernia-ascites Bilateral lower leg edema all 4+ pitting. Right lower leg has mild erythema and is warm to touch. TRAVEL OUTSIDE OF THE [place] IN LAST 30 DAYS: No - Related Data Allergies/Adverse Reactions: Penicillins Allergy (Severe, Verified 12/03/17 13:56) rash and hospitalization for 3 days Past Medical History - Social History Chew tobacco use (# tins/day): No Frequency of alcohol use: None Drug Abuse: None - Past Medical History Cardiac Medical History: Reports: Hx Coronary Artery Disease, Hx Heart Attack, Hx Hypercholesterolemia, Hx Hypertension Pulmonary Medical History: Reports: Hx Asthma, Hx COPD Denies: Hx Bronchitis, Hx Pneumonia Neurological Medical History: Reports: Hx Seizures - suspect few years ago on meds. Denies: Hx Cerebrovascular Accident Endocrine Medical History: Reports: Hx Diabetes Mellitus Type 2, Hx Hypothyroidism Renal/ Medical History: Denies: Hx Peritoneal Dialysis GI Medical History: Denies: Hx Hepatitis, Hx Hiatal Hernia, Hx Ulcer Musculoskeltal Medical History: Denies Hx Arthritis Psychiatric Medical History: Denies: Hx Depression Infectious Medical History: Denies: Hx Hepatitis Past Surgical History: Reports: Hx Cholecystectomy, Hx Orthopedic Surgery - Right Knee arthroscopy, Hx Thyroid Surgery - Thyroidectomy. Denies: Hx Open Heart Surgery, Hx Pacemaker - Immunizations Hx Diphtheria, Pertussis, Tetanus Vaccination: Yes Physical Exam - Vital signs Vitals: Temp Pulse Resp BP Pulse Ox 97.6 F 75 20 105/70 97 12/03/17 15:16 12/03/17 15:16 12/03/17 15:16 12/03/17 15:16 12/03/17 15:16 Course - Vital Signs Vital signs: Temp Pulse Resp BP Pulse Ox 97.6 F 75 20 105/70 97 12/03/17 15:16 12/03/17 15:16 12/03/17 15:16 12/03/17 15:16 12/03/17 15:16 Doctor's Discharge - Discharge Referrals: RODRIGO SWEET MD [Primary Care Provider] - Follow up as needed
[2017-12-03 16:40] LABS: HEMATOCRIT 32.9 % (37.9-51.0); MEAN CORPUSCULAR HGB CONC 33.6 g/dL (32.0-36.0); MEAN CORPUSCULAR VOLUME 95 fl (80-97); PLATELET COUNT 180 10^3/uL (150-450); RED BLOOD COUNT 3.45 10^6/uL (4.35-5.55); RED CELL DISTRIBUTION WIDTH 15.8 % (11.5-14.0); WHITE BLOOD COUNT 7.1 10^3/uL (4.0-10.5)
[2017-12-03 17:06] LABS: ABSOLUTE LYMPHOCYTES# (MANUAL) 1.4 10^3/uL (0.5-4.7); ABSOLUTE MONOCYTES # (MANUAL) 0.6 10^3/uL (0.1-1.4); ABSOLUTE NEUTROPHILS# (MANUAL) 4.6 10^3/uL (1.7-8.2); ANISOCYTOSIS SLIGHT; BASOPHILS % (MANUAL) 1 % (0-2); EOSINOPHILS % (MANUAL) 6 % (0-6); LYMPHOCYTES % (MANUAL) 20 % (13-45); MONOCYTES % (MANUAL) 8 % (3-13); PLATELET COMMENT ADEQUATE; ROULEAUX 2+; SEGMENTED NEUTROPHILS % (MAN) 65 % (42-78); TOTAL CELLS COUNTED 100
[2017-12-03 17:20] LABS: CREATINE KINASE MB 1.6 ng/mL (<4.55); TROPONIN I 0.013 ng/mL
[2017-12-03 17:37] LABS: ALANINE AMINOTRANSFERASE 16 U/L (21-72); ALBUMIN 2.5 g/dL (3.5-5.0); ALKALINE PHOSPHATASE 110 U/L (38-126); ASPARTATE AMINO TRANSFERASE 63 U/L (17-59); BILIRUBIN,DIRECT 0.6 mg/dL (0.0-0.4); BILIRUBIN,TOTAL 1.1 mg/dL (0.2-1.3); BLOOD UREA NITROGEN 8 mg/dL (7-20); CALCIUM 8.3 mg/dL (8.4-10.2); CARBON DIOXIDE 23 mmol/L (22-30); CHLORIDE 109 mmol/L (98-107); GLUCOSE 86 mg/dL (75-110); POTASSIUM 3.4 mmol/L (3.6-5.0); SODIUM 136.1 mmol/L (137-145); TOTAL PROTEIN 8.2 g/dL (6.3-8.2)
[2017-12-03 17:38] LABS: ANION GAP 4 (5-19)
[2017-12-03 17:46] LABS: LIPASE 40.8 U/L (23-300)
[2017-12-03 18:25] LABS: APPEARANCE,URINE SLIGHTLY-CLOUDY; BILIRUBIN,URINE NEGATIVE (NEGATIVE); COLOR,URINE AMBER; GLUCOSE, URINE NEGATIVE (NEGATIVE); KETONES,URINE NEGATIVE (NEGATIVE); LEUKOCYTE ESTERASE,URINE TRACE (NEGATIVE); NITRITE,URINE POSITIVE (NEGATIVE); PROTEIN,URINE 30 mg/dL (NEGATIVE); URINE SPECIFIC GRAVITY 1.018; UROBILINOGEN,URINE NEGATIVE mg/dL (<2.0)
--- NOTE | 2017-12-03 18:44 | RADIOLOGY REPORT (SQ) ---
EXAM DESCRIPTION: CT ABD/PELVIS WITH IV ONLY COMPLETED DATE/TIME: 12/03/2017 6:20 pm REASON FOR STUDY: intertestinal obstruction COMPARISON: None. TECHNIQUE: CT scan of the abdomen and pelvis performed using helical scanning technique with dynamic intravenous contrast injection. No oral contrast. Images reviewed with lung, soft tissue, and bone windows. Reconstructed coronal and sagittal MPR images reviewed. Delayed images for evaluation of the urinary system also acquired. All images stored on PACS. All CT scanners at this facility use dose modulation, iterative reconstruction, and/or weight based d osing when appropriate to reduce radiation dose to as low as reasonably achievable (ALARA). [facility]: Dose Right [facility]: CareDose [facility]: Dose Right [facility]: Teradose 4D [facility]: [employer] CONTRAST TYPE AND DOSE: contrast/concentration: Isovue 350.00 mg/ml; Total Contrast Delivered: 90.0 ml; Total Saline Delivered: 70.0 ml RENAL FUNCTION: BUN 8 creatinine 0.79. RADIATION DOSE: CT Rad equipment meets quality standard of care and radiation dose reduction techniq ues were employed. CTDIvol: 12.2 - 15.0 mGy. DLP: 1579 mGy-cm.. LIMITATIONS: None. FINDINGS: LOWER CHEST: Chronic scarring. LIVER: Heterogenous nodular appearance. No masses. No dilated ducts. SPLEEN: Normal size. No focal lesions. PANCREAS: No masses. No significant calcifications. No adjacent inflammation or peripancreatic fluid collections. Pancreatic duct not dilated. GALLBLADDER: Surgically absent. ADRENAL GLANDS: No significant masses or asymmetry. RIGHT KIDNEY AND URETER: No solid masses. No significant calcifications. No hydronephrosis or hyd roureter. LEFT KIDNEY AND URETER: No solid masses. No significant calcifications. No hydronephrosis or hydr oureter. AORTA AND VESSELS: No aneurysm. No dissection. Renal arteries, SMA, celiac without stenosis. RETROPERITONEUM: No retroperitoneal adenopathy, hemorrhage or masses. BOWEL AND PERITONEAL CAVITY: No masses or inflammatory changes. Large amount of ascites. APPENDIX: Not visualized. PELVIS: No mass. No free fluid. Normal bladder. ABDOMINAL WALL: No masses. No hernias. BONES: No significant or acute findings. OTHER: No other significant finding. IMPRESSION: HETEROGENOUS NODULAR APPEARANCE OF THE LIVER CONSISTENT WITH CIRRHOSIS. LARGE AMOUNT OF ASCITES. NO OTHER SIGNIFICANT FINDINGS. TECHNICAL DOCUMENTATION: JOB ID: [id number] Quality ID # [id number]: Final reports with documentation of one or more dose reduction techniques (e.g., Au tomated exposure control, adjustment of the mA and/or kV according to patient size, use of iterative reconstruction technique) 2010 [employer]- All Rights Reserved Reading location - IP/workstation name: [email or web address]
[2017-12-03] MEDS ORDERED: FUROSEMIDE INJ/PF 40 MG/4 ML SDV IV ONE (19:12)
[2017-12-03] MEDS ORDERED: CIPROFLOXACIN HCL 500 MG TABLET PO ONE (20:03)
--- NOTE | 2017-12-03 20:07 | ER Document Report ---
ED General - General Chief Complaint: Leg Swelling Stated Complaint: LEG AND FEET SWELLING Time Seen by Provider: 12/03/17 15:18 TRAVEL OUTSIDE OF THE [place] IN LAST 30 DAYS: No - HPI Patient complains to provider of: Ascites swelling of the legs Notes: Patient coming in complaining of ascites swelling of his legs. Patient states is ongoing for the last few days. Patient states now having difficulty walking and ambulating shortness of breath on exertion because of the swelling. Patient denies any fevers chills nausea vomiting diarrhea. Patient states that this is new for him. - Related Data Allergies/Adverse Reactions: Penicillins Allergy (Severe, Verified 12/03/17 13:56) rash and hospitalization for 3 days Past Medical History - Social History Smoking Status: Never Smoker Chew tobacco use (# tins/day): No Frequency of alcohol use: None Drug Abuse: None Family History: Reviewed & Not Pertinent Patient has suicidal ideation: No Patient has homicidal ideation: No - Past Medical History Cardiac Medical History: Reports: Hx Coronary Artery Disease, Hx Heart Attack, Hx Hypercholesterolemia, Hx Hypertension Pulmonary Medical History: Reports: Hx Asthma, Hx COPD Denies: Hx Bronchitis, Hx Pneumonia Neurological Medical History: Reports: Hx Seizures - suspect few years ago on meds. Denies: Hx Cerebrovascular Accident Endocrine Medical History: Reports: Hx Diabetes Mellitus Type 2, Hx Hypothyroidism Renal/ Medical History: Denies: Hx Peritoneal Dialysis GI Medical History: Denies: Hx Hepatitis, Hx Hiatal Hernia, Hx Ulcer Musculoskeletal Medical History: Denies Hx Arthritis Psychiatric Medical History: Denies: Hx Depression Infectious Medical History: Denies: Hx Hepatitis Past Surgical History: Reports: Hx Cholecystectomy, Hx Orthopedic Surgery - Right Knee arthroscopy, Hx Thyroid Surgery - Thyroidectomy. Denies: Hx Open Heart Surgery, Hx Pacemaker - Immunizations Hx Diphtheria, Pertussis, Tetanus Vaccination: Yes Hx Pneumococcal Vaccination: 12/17/09 Review of Systems - Review of Systems Constitutional: No symptoms reported EENT: No symptoms reported Cardiovascular: No symptoms reported Respiratory: No symptoms reported Gastrointestinal: Other - Ascites Genitourinary: No symptoms reported Male Genitourinary: No symptoms reported Musculoskeletal: Leg swelling Skin: No symptoms reported Hematologic/Lymphatic: No symptoms reported Neurological/Psychological: No symptoms reported -: Yes All other systems reviewed and negative Physical Exam - Vital signs Vitals: Temp Pulse Resp BP Pulse Ox 97.6 F 75 20 105/70 97 12/03/17 15:16 12/03/17 15:16 12/03/17 15:16 12/03/17 15:16 12/03/17 15:16 Interpretation: Normal - General General appearance: Appears well, Alert - HEENT Head: Normocephalic, Atraumatic Eyes: Normal Pupils: PERRL - Respiratory Respiratory status: No respiratory distress Chest status: Nontender Breath sounds: Normal Chest palpation: Normal - Cardiovascular Rhythm: Regular Heart sounds: Normal auscultation Murmur: No - Abdominal Inspection: Normal Distension: No distension, Fluid wave Bowel sounds: Normal Tenderness: Nontender Organomegaly: No organomegaly - Back Back: Normal, Nontender - Extremities General upper extremity: Normal inspection, Nontender, Normal color, Normal ROM , Normal temperature General lower extremity: Normal inspection, Nontender, Edema - 3-4+ edema, Normal color, Normal ROM, Normal temperature, Normal weight bearing. No: Aline' s sign - Neurological Neuro grossly intact: Yes Cognition: Normal Orientation: AAOx4 [place] Coma Scale Eye Opening: Spontaneous [place] Coma Scale Verbal: Oriented [place] Coma Scale Motor: Obeys Commands [place] Coma Scale Total: 15 Speech: Normal Motor strength normal: LUE, RUE, LLE, RLE Sensory: Normal - Psychological Associated symptoms: Normal affect, Normal mood - Skin Skin Temperature: Warm Skin Moisture: Dry Skin Color: Normal Course - Re-evaluation Re-evalutation: 12/03/17 21:30 Patient coming in with ascites and lower extremity edema workup showing no signs of overt congestive heart failure discussed patient's case with PCP states that this is chronic for the patient also hypoalbuminemia due to low protein intake recommend Lasix for the next few days along with along with increased protein in patient's diet. All these treatment plans were discussed with the patient treatment of the UTI with Cipro patient was given a dose of Lasix here. Patient vital signs remained stable. Patient will be discharged on follow-up primary care physician. - Vital Signs Vital signs: Temp Pulse Resp BP Pulse Ox 97.6 F 82 17 109/92 H 94 12/03/17 15:16 12/03/17 19:23 12/03/17 20:57 12/03/17 20:57 12/03/17 20:57 - Laboratory Result Diagrams: 12/03/17 16:22 12/03/17 16:22 Laboratory results interpreted by me: 12/03/17 12/03/17 12/03/17 16:22 16:22 16:22 RBC 3.45 L Hgb 11.0 L Hct 32.9 L RDW 15.8 H Sodium 136.1 L Potassium 3.4 L Chloride 109 H Anion Gap 4 L Calcium 8.3 L Direct Bilirubin 0.6 H AST 63 H ALT 16 L NT-Pro-B Natriuret Pep 1540 H Albumin 2.5 L Urine Protein Urine Blood Urine Nitrite Ur Leukocyte Esterase 12/03/17 17:47 RBC Hgb Hct RDW Sodium Potassium Chloride Anion Gap Calcium Direct Bilirubin AST ALT NT-Pro-B Natriuret Pep Albumin Urine Protein 30 H Urine Blood LARGE H Urine Nitrite POSITIVE H Ur Leukocyte Esterase TRACE H Discharge - Discharge Clinical Impression: Localized swelling of both lower legs Ascites Qualifiers: Ascites type: other type Qualified Code(s): R18.8 - Other ascites Urinary tract infection Qualifiers: Urinary tract infection type: site unspecified Hematuria presence: without hematuria Qualified Code(s): N39.0 - Urinary tract infection, site not specified Condition: Good Disposition: HOME, SELF-CARE Instructions: Edema, Peripheral ([facility]), Urinary Tract Infection ([facility]) Additional Instructions: Laboratory studies today shows that you have signs of urinary tract infection. Please take antibiotics as prescribed. Would also recommend taking the Lasix to aid in the swelling. I did discuss your case with your primary care physician recommends increasing your protein in your diet also following up with him in the next 3 days. On Sunday return to ER symptoms worsen. Prescriptions: Ciprofloxacin HCl [Cipro 500 mg Tablet] 500 mg PO BID #7 tablet Ciprofloxacin HCl [Cipro 500 mg Tablet] 500 mg PO BID #6 tablet Furosemide [Lasix 40 mg Tablet] 40 mg PO BID #6 tablet Referrals: RODRIGO SWEET MD [Primary Care Provider] - 12/05/17 (Call office to make appointment for Sunday)
[2017-12-03 20:59] VITALS: BP 109/92
== END 2017-12-03 21:31 | disposition home or self-care (01) ==
LOC: ER 13:55
DX: M79.89 Other specified soft tissue disorders (principal); R18.8 Other ascites; N39.0 Urinary tract infection, site not specified; I25.10 Atherosclerotic heart disease of native coronary artery without angina pectoris; E78.00 Pure hypercholesterolemia, unspecified; I10 Essential (primary) hypertension; E11.9 Type 2 diabetes mellitus without complications; E03.9 Hypothyroidism, unspecified; Z88.0 Allergy status to penicillin; I25.2 Old myocardial infarction; Z90.49 Acquired absence of other specified parts of digestive tract
CPT/HCPCS: 99284; 51701; 96374; 36415; 82553; 82140; 83690; 85025; 80053; 81001; 84484; 83880; 74177; A9270; J1940